=== PATIENT | male | born 1945 | race Caucasian/White ===

== ENCOUNTER 2020-12-10 07:27 | Outpatient (CLI) | payer OTHER | END 2020-12-10 07:34 | disposition home or self-care (01) | LOC: RX STUDY 07:27 | PROVIDERS: ATTEND Specialist | DX: R13.14 Dysphagia, pharyngoesophageal phase (principal) ==

== ENCOUNTER 2022-12-23 07:12 | Outpatient (CLI) | payer OTHER | END 2022-12-23 07:20 | disposition home or self-care (01) | LOC: RX STUDY 07:12 | PROVIDERS: ATTEND Otolaryngology Plastic Surgery within the Head & Neck | DX: R13.19 Other dysphagia (principal); R09.89 Other specified symptoms and signs involving the circulatory and respiratory systems ==

== ENCOUNTER 2025-04-23 07:05 | Outpatient (CLI) | payer OTHER | END 2025-04-23 07:20 | disposition home or self-care (01) | LOC: TOM 07:05 | PROVIDERS: ATTEND Internal Medicine Gastroenterology | DX: K56.609 Unspecified intestinal obstruction, unspecified as to partial versus complete obstruction (principal); R19.5 Other fecal abnormalities ==